=== PATIENT | female | born 1955 | race African-American/Black ===

== ENCOUNTER 2016-08-19 11:02 | Inpatient (IN) | payer OTHER, MEDICAID ==
[~2016-08-19] VITALS: Ht 165.1 cm; Wt 118.1 kg
[~2016-08-19 11:02] MED LIST: ALBU18HF INH; ALBU8.5H5 INH; BECL8.7A5 INH; BISA10SU54 PR; CEPH-368 PO; CITA20TA5 PO; CITA40TA5 PO; CLIN-60 PO; CYCL-259 PO; DIAZ5TAB PO; FAMO-79 PO; GABA300C10 PO; GABA600T2 PO; HYDR-3307 PO; LORA10CA PO; LORA10TA75 PO; MAGN400O4 PO; METH750T87 PO; MULT-750 PO; NAPR-874 PO; OXYB5TAB7 PO; OXYC1TAB9 PO; OXYC5CAP4 PO; POLY17PO5 PO; SENN1TAB67 PO; SIMV10TA3 PO; SIMV20TA3 PO; TRAM50TA2 PO; TRAZ50TA18 PO
[2016-08-19] MEDS ORDERED: SODIUM CHLORIDE 0.9% 1,000 ML IV ONE (11:35)
[2016-08-19] MEDS ORDERED: HYDROmorphone 1 MG/ML, 1ML IVPush PRN (12:00)
[2016-08-19] MEDS ORDERED: SODIUM CHLORIDE FLUSH 10ML SYR IVF ONE (12:00)
[2016-08-19] MEDS ORDERED: ONDANSETRON 2MG/ML, 2ML IVPush ONE (12:00)
[2016-08-19 12:21] LABS: ASPARTATE AMINO TRANSFERASE 20 U/L (15-37); BLOOD UREA NITROGEN 14 mg/dL (7-18)
[2016-08-19] MEDS ORDERED: DIAZEPAM 5 MG/ML, 2ML IV PRN (15:00)
[2016-08-19] MEDS ORDERED: ONDANSETRON 2MG/ML, 2ML IVPush PRN (15:00)
[2016-08-19] MEDS ORDERED: METHOCARBAMOL 750 MG TABLET PO PRN (15:00)
[2016-08-19] MEDS ORDERED: TRAZODONE 50MG TABLET PO PRN (15:00)
[2016-08-19] MEDS ORDERED: DOCUSATE 100 MG CAPSULE PO PRN (15:00)
[2016-08-19] MEDS ORDERED: ACETAMINOPHEN 325 MG TABLET PO PRN (15:00)
[2016-08-19] MEDS ORDERED: BISACODYL 10 MG SUPP PR PRN (15:00)
[2016-08-19] MEDS: MORPHINE SULFATE 4 MG/ML, 1ML IVPush PRN ×2 (17:12→23:31)
[2016-08-19 17:15] VITALS: BP 135/84
[2016-08-19] MEDS ORDERED: ENOXAPARIN 40 MG/0.4 ML SQ SCH (18:00)
[2016-08-19] MEDS ORDERED: GADOBUTROL 10 MMOL/10 ML PFS ONE (19:01)
[2016-08-19 20:00] VITALS: BP 127/78
[2016-08-19] MEDS: SIMVASTATIN 20 MG TABLET PO SCH (20:23)
[2016-08-19] MEDS: FAMOTIDINE 20 MG TABLET PO SCH (20:23)
[2016-08-19] MEDS: ENOXAPARIN 40 MG/0.4 ML SQ SCH (20:23)
[2016-08-19] MEDS: OXYBUTYNIN CHLORIDE 5 MG TABLET PO SCH (20:23)
[2016-08-19] MEDS: LORATADINE 10 MG TABLET PO SCH (20:23)
[2016-08-19] MEDS: SODIUM CHLORIDE FLUSH 3ML SYRINGE IVF SCH (20:24)
[2016-08-19] MEDS: OXYcodone IR 5MG TABLET PO PRN (20:27)
[2016-08-20 02:00] VITALS: BP 112/69
[2016-08-20] MEDS: OXYcodone IR 5MG TABLET PO PRN ×4 (04:12→23:53)
[2016-08-20 07:51] VITALS: BP 130/86
[2016-08-20] MEDS: SODIUM CHLORIDE FLUSH 3ML SYRINGE IVF SCH ×2 (09:00→19:43)
[2016-08-20] MEDS: CITALOPRAM 20 MG TABLET PO SCH (09:31)
[2016-08-20] MEDS: OXYBUTYNIN CHLORIDE 5 MG TABLET PO SCH ×2 (09:31→19:41)
[2016-08-20] MEDS: LORATADINE 10 MG TABLET PO SCH (09:31)
[2016-08-20] MEDS: FAMOTIDINE 20 MG TABLET PO SCH ×2 (09:31→16:38)
[2016-08-20] MEDS: MULTIVITAMIN 1 TABLET PO SCH (09:31)
[2016-08-20] MEDS: SENNA/DOCUSATE TABLET PO SCH (09:32)
[2016-08-20] MEDS: MECLIZINE CHEWABLE 25 MG TAB PO SCH ×3 (13:18→19:42)
[2016-08-20] MEDS: TIZANIDINE 4MG TABLET PO SCH ×2 (13:20→19:41)
[2016-08-20 13:56] VITALS: BP 125/74
[2016-08-20] MEDS: DIPHENHYDRAMINE 50 MG/ML, 1ML IVPush PRN ×2 (14:20→22:17)
[2016-08-20] MEDS: TRIAMCINOLONE CRM 0.1%, 15GM TP SCH ×2 (16:38→19:44)
[2016-08-20 19:27] VITALS: BP 144/85
[2016-08-20] MEDS: SIMVASTATIN 20 MG TABLET PO SCH (19:41)
[2016-08-20] MEDS: ENOXAPARIN 40 MG/0.4 ML SQ SCH (19:42)
[2016-08-20] MEDS ORDERED: TRIAMCINOLONE CRM 0.1%, 15GM TP SCH (21:00)
[2016-08-21 01:48] VITALS: BP_SYST 135; BP_SYST 141; BP_SYST 143; BP_DIAS 68; BP_DIAS 87; BP_DIAS 90
[2016-08-21] MEDS: MECLIZINE CHEWABLE 25 MG TAB PO SCH ×4 (05:23→21:38)
[2016-08-21] MEDS: TIZANIDINE 4MG TABLET PO SCH ×3 (05:23→21:39)
[2016-08-21 07:30] VITALS: BP 122/79
[2016-08-21] MEDS: HYDROCORTISONE 100 MG INJ. IVPush SCH ×3 (08:04→23:55)
[2016-08-21] MEDS: MORPHINE SULFATE 4 MG/ML, 1ML IVPush PRN ×3 (08:06→17:15)
[2016-08-21] MEDS: CITALOPRAM 20 MG TABLET PO SCH (08:07)
[2016-08-21] MEDS: FAMOTIDINE 20 MG TABLET PO SCH ×2 (08:07→16:07)
[2016-08-21] MEDS: LORATADINE 10 MG TABLET PO SCH (08:08)
[2016-08-21] MEDS: SENNA/DOCUSATE TABLET PO SCH (08:08)
[2016-08-21] MEDS: TRIAMCINOLONE CRM 0.1%, 15GM TP SCH ×2 (08:08→21:39)
[2016-08-21] MEDS: OXYBUTYNIN CHLORIDE 5 MG TABLET PO SCH ×2 (08:08→21:38)
[2016-08-21] MEDS: MULTIVITAMIN 1 TABLET PO SCH (08:08)
[2016-08-21] MEDS: SODIUM CHLORIDE FLUSH 3ML SYRINGE IVF SCH ×2 (09:00→21:39)
[2016-08-21 13:40] VITALS: BP 144/84
[2016-08-21 19:29] VITALS: BP 118/66
[2016-08-21] MEDS: ENOXAPARIN 40 MG/0.4 ML SQ SCH (20:05)
[2016-08-21] MEDS: POLYETHYLENE GLYCOL 17 GM PACKET PO PRN (20:11)
[2016-08-21] MEDS: KETOROLAC 30 MG/1 ML IVPush PRN (20:11)
[2016-08-21] MEDS: SIMVASTATIN 20 MG TABLET PO SCH (21:38)
[2016-08-22 01:49] VITALS: BP 123/75
[2016-08-22] MEDS: KETOROLAC 30 MG/1 ML IVPush PRN ×2 (02:26→08:56)
[2016-08-22] MEDS: TIZANIDINE 4MG TABLET PO SCH ×3 (05:45→20:25)
[2016-08-22] MEDS: MECLIZINE CHEWABLE 25 MG TAB PO SCH ×4 (05:45→20:25)
[2016-08-22 07:15] VITALS: BP 112/71
[2016-08-22] MEDS: HYDROCORTISONE 100 MG INJ. IVPush SCH (08:56)
[2016-08-22] MEDS: CITALOPRAM 20 MG TABLET PO SCH (08:57)
[2016-08-22] MEDS: FAMOTIDINE 20 MG TABLET PO SCH ×2 (08:57→16:21)
[2016-08-22] MEDS: LORATADINE 10 MG TABLET PO SCH (08:57)
[2016-08-22] MEDS: OXYBUTYNIN CHLORIDE 5 MG TABLET PO SCH ×2 (08:58→20:26)
[2016-08-22] MEDS: MULTIVITAMIN 1 TABLET PO SCH (08:58)
[2016-08-22] MEDS: SODIUM CHLORIDE FLUSH 3ML SYRINGE IVF SCH ×2 (08:58→20:28)
[2016-08-22] MEDS: TRIAMCINOLONE CRM 0.1%, 15GM TP SCH ×2 (08:58→20:26)
[2016-08-22] MEDS: SENNA/DOCUSATE TABLET PO SCH (08:58)
[2016-08-22] MEDS: POLYETHYLENE GLYCOL 17 GM PACKET PO PRN (08:58)
[2016-08-22] MEDS: FLUDROCORTISONE 0.1 MG TABLET PO SCH (12:26)
[2016-08-22] MEDS: OXYcodone IR 5MG TABLET PO PRN ×3 (12:37→22:16)
[2016-08-22 13:08] VITALS: BP 135/84
[2016-08-22 20:11] VITALS: BP 116/67
[2016-08-22] MEDS: ENOXAPARIN 40 MG/0.4 ML SQ SCH (20:25)
[2016-08-22] MEDS: SIMVASTATIN 20 MG TABLET PO SCH (20:26)
[2016-08-23] MEDS: TIZANIDINE 4MG TABLET PO SCH ×3 (05:38→21:10)
[2016-08-23] MEDS: MECLIZINE CHEWABLE 25 MG TAB PO SCH ×4 (05:38→21:10)
[2016-08-23 07:06] VITALS: BP 128/74
[2016-08-23] MEDS: SENNA/DOCUSATE TABLET PO SCH (09:00)
[2016-08-23] MEDS: SODIUM CHLORIDE FLUSH 3ML SYRINGE IVF SCH ×2 (09:00→21:00)
[2016-08-23] MEDS: CITALOPRAM 20 MG TABLET PO SCH (10:18)
[2016-08-23] MEDS: FAMOTIDINE 20 MG TABLET PO SCH ×2 (10:18→21:10)
[2016-08-23] MEDS: LORATADINE 10 MG TABLET PO SCH (10:18)
[2016-08-23] MEDS: OXYBUTYNIN CHLORIDE 5 MG TABLET PO SCH ×2 (10:18→21:10)
[2016-08-23] MEDS: MULTIVITAMIN 1 TABLET PO SCH (10:18)
[2016-08-23] MEDS: OXYcodone IR 5MG TABLET PO PRN ×2 (10:19→18:17)
[2016-08-23] MEDS: FLUDROCORTISONE 0.1 MG TABLET PO SCH (10:19)
[2016-08-23] MEDS: TRIAMCINOLONE CRM 0.1%, 15GM TP SCH ×2 (10:19→21:10)
[2016-08-23 13:01] VITALS: BP 147/80
[2016-08-23 20:31] VITALS: BP 112/65
[2016-08-23] MEDS: SIMVASTATIN 20 MG TABLET PO SCH (21:10)
[2016-08-23] MEDS: ENOXAPARIN 40 MG/0.4 ML SQ SCH (21:11)
[2016-08-24 00:18] VITALS: BP 115/70
[2016-08-24] MEDS: OXYcodone IR 5MG TABLET PO PRN ×3 (00:58→12:24)
[2016-08-24] MEDS: TIZANIDINE 4MG TABLET PO SCH (06:15)
[2016-08-24] MEDS: MECLIZINE CHEWABLE 25 MG TAB PO SCH ×2 (06:15→12:01)
[2016-08-24 07:11] VITALS: BP 116/77
[2016-08-24] MEDS: LORATADINE 10 MG TABLET PO SCH (08:08)
[2016-08-24] MEDS: FAMOTIDINE 20 MG TABLET PO SCH (08:08)
[2016-08-24] MEDS: MULTIVITAMIN 1 TABLET PO SCH (08:08)
[2016-08-24] MEDS: TRIAMCINOLONE CRM 0.1%, 15GM TP SCH (08:09)
[2016-08-24] MEDS: FLUDROCORTISONE 0.1 MG TABLET PO SCH (08:09)
[2016-08-24] MEDS: CITALOPRAM 20 MG TABLET PO SCH (08:09)
[2016-08-24] MEDS: SODIUM CHLORIDE FLUSH 3ML SYRINGE IVF SCH (08:09)
[2016-08-24] MEDS: OXYBUTYNIN CHLORIDE 5 MG TABLET PO SCH (08:09)
[2016-08-24] MEDS: SENNA/DOCUSATE TABLET PO SCH (08:16)
[2016-08-24] MEDS ORDERED: TIZA4TAB PO (10:59)
[2016-08-24] MEDS ORDERED: FLUD0.1T PO (10:59)
[2016-08-24] MEDS ORDERED: MECL-85 PO (10:59)
== END 2016-08-24 12:30 | disposition home or self-care (01) | DRG 552 ==
LOC: ED 13:55 → SUATTDRO 14:07 → EDIP 14:44 → 3NE 16:37
DX: S33.5XXA Sprain of ligaments of lumbar spine, initial encounter (principal); Z68.41 Body mass index [BMI] 40.0-44.9, adult; E27.40 Unspecified adrenocortical insufficiency; E03.9 Hypothyroidism, unspecified; E11.9 Type 2 diabetes mellitus without complications; E66.01 Morbid (severe) obesity due to excess calories; E78.5 Hyperlipidemia, unspecified; F32.9 Major depressive disorder, single episode, unspecified; G44.209 Tension-type headache, unspecified, not intractable; G89.29 Other chronic pain; I10 Essential (primary) hypertension; J45.909 Unspecified asthma, uncomplicated; Z88.8 Allergy status to other drugs, medicaments and biological substances; Z86.73 Personal history of transient ischemic attack (TIA), and cerebral infarction without residual deficits; Z88.0 Allergy status to penicillin; Z87.891 Personal history of nicotine dependence; M54.2 Cervicalgia; S39.012A Strain of muscle, fascia and tendon of lower back, initial encounter; M62.830 Muscle spasm of back
CPT/HCPCS: 36415; 70450; 70553; 71010; 72141; 72158; 80053; 81003; 82140; 82533; 82550; 83605; 84443; 85025; 85651; 86141; 93005; 99285; A9585; J1650; J1885; J1200; J1720

== ENCOUNTER 2017-04-05 05:27 | Day surgery (SDC) | payer OTHER, MEDICAID ==
[2017-04-03 13:21] VITALS: BP 121/84
[~2017-04-05] VITALS: Ht 165.1 cm; Wt 115.8 kg
[~2017-04-05 05:27] MED LIST changes: -BECL8.7A5 INH; +BECL8.7A7 INH; -CLIN-60 PO; +CLIN150C14 PO; +FLUD0.1T PO; -MAGN400O4 PO; +MAGN400O7 PO; +MECL-85 PO; +MONT10TA9 PO; -NAPR-874 PO; +NAPR250T6 PO; +OXYC5CAP2 PO; -OXYC5CAP4 PO; +TIZA4TAB PO; +[UNRECOGNIZED DRUG - OTHER]
[2017-04-05] MEDS ORDERED: LACTATED RINGERS 1,000 ML IV SCH (06:10)
[2017-04-05 06:15] VITALS: BP 121/84
[2017-04-05] MEDS ORDERED: HYDR-3237 PO (06:15)
[2017-04-05] MEDS ORDERED: BUPIVACAINE/PF 0.5% ONE (06:17)
[2017-04-05] MEDS ORDERED: LIDOCAINE 1%, 50ML ONE (06:17)
[2017-04-05] MEDS ORDERED: LIDOCAINE 1%, 2ML SQ PRN (06:30)
[2017-04-05] MEDS ORDERED: FLUT200B INH (06:34)
[2017-04-05] MEDS ORDERED: MIDAZOLAM 1 MG/ML, 2ML ONE (06:48)
[2017-04-05] MEDS ORDERED: FENTANYL PF 100 MCG/2ML ONE (06:48)
[2017-04-05] MEDS ORDERED: ONDANSETRON 2MG/ML, 2ML IVPush PRN (07:30)
[2017-04-05] MEDS ORDERED: HYDROcodone/APAP 7.5-325MG/15ML UDC PO PRN (07:30)
[2017-04-05] MEDS ORDERED: DIAZEPAM 5 MG/ML, 2ML IVPush PRN (07:30)
[2017-04-05] MEDS ORDERED: LABETALOL 5MG/ML, 20ML IV PRN (07:30)
[2017-04-05] MEDS ORDERED: ACETAMINOPHEN 325 MG TABLET PO PRN (07:30)
[2017-04-05] MEDS ORDERED: OXYcodone 5 MG/5 ML ORAL.SOL UDC PO PRN (07:30)
[2017-04-05] MEDS ORDERED: FENTANYL PF 100 MCG/2ML IV PRN (07:30)
[2017-04-05] MEDS ORDERED: hydrALAzine 20 MG/ML, 1ML IV PRN (07:30)
[2017-04-05] MEDS ORDERED: PROMETHAZINE 25 MG/ML, 1ML IV PRN (07:30)
[2017-04-05] MEDS ORDERED: MIDAZOLAM 1 MG/ML, 2ML IV PRN (07:30)
[2017-04-05] MEDS ORDERED: MEPERIDINE/PF 25MG/0.5ML IVPush PRN (07:30)
[2017-04-05] MEDS ORDERED: EPHEDRINE 50 MG/ML, 1ML IVPush PRN (07:30)
[2017-04-05] MEDS ORDERED: HYDROmorphone 1 MG/ML, 1ML IV PRN (07:30)
[2017-04-05] MEDS ORDERED: METOPROLOL 1 MG/ML, 5ML IV PRN (07:30)
[2017-04-05] MEDS ORDERED: ALBUTEROL SULFATE 2.5 MG/3 ML NPPB PRN (07:30)
[2017-04-05] MEDS ORDERED: ONDANSETRON 2MG/ML, 2ML ONE (10:23)
[2017-04-05] MEDS ORDERED: PROPOFOL 10 MG/ML, 20ML ONE (10:23)
[2017-04-05] MEDS ORDERED: DEXAMETHASONE 4 MG/ML, 1ML ONE (10:23)
[2017-04-05] MEDS ORDERED: CEFAZOLIN 1,000 MG ONE (10:23)
[2017-04-05] MEDS ORDERED: KETOROLAC 30 MG/1 ML ONE (10:23)
== END 2017-04-05 09:40 | disposition home or self-care (01) ==
LOC: OUT 05:27
PROVIDERS: ATTEND Orthopaedic Surgery
DX: G56.01 Carpal tunnel syndrome, right upper limb (principal); M19.90 Unspecified osteoarthritis, unspecified site; J45.909 Unspecified asthma, uncomplicated; Z86.73 Personal history of transient ischemic attack (TIA), and cerebral infarction without residual deficits; Z88.0 Allergy status to penicillin; Z88.6 Allergy status to analgesic agent; Z88.8 Allergy status to other drugs, medicaments and biological substances
CPT/HCPCS: 64721; 93005; J0690; J1100; J1885; J2250; J2405; J2704; J3010; J3490; J7120

== ENCOUNTER 2017-05-31 14:26 | Emergency (ER) | payer OTHER, MEDICAID ==
[~2017-05-31] VITALS: Ht 165.1 cm; Wt 116.0 kg
[~2017-05-31 14:26] MED LIST changes: +FLUT200B INH; +HYDR-3237 PO
[2017-05-31 14:34] VITALS: BP 160/92
[2017-05-31 15:30] LABS: RAPID INFLUENZA A Negative (Negative); RAPID INFLUENZA B Negative (Negative)
== END 2017-05-31 15:43 | disposition home or self-care (01) ==
LOC: ED 14:37
DX: J00 Acute nasopharyngitis [common cold] (principal)
CPT/HCPCS: 71046; 87400; 99285